=== PATIENT | female | born 1945 | race Caucasian/White ===

== ENCOUNTER 2019-03-10 13:06 | Outpatient (CLI) | payer MEDICARE ==
[2019-03-10 15:11] LABS: #Eosinphils 0.1 thou/uL (0.0-0.7); #Lymphocytes 1.6 thou/uL (1.20-3.40); #Monocytes 0.6 thou/uL (0.11-0.59); #Neutrophils 4.7 thou/uL (1.40-6.50); %Basophils 0.3 % (0.0-1.0); %Eosinophils 0.8 % (0.0-10.0); %Lymphocytes 22.9 % (21.0-51.0); %Monocytes 8.5 % (0.0-10.0); %Neutrophils 67.5 % (42.0-75.0); Hemoglobin 13.4 g/dL (12.0-16.0); Mean Corpuscular HGB CONC 32.2 g/dL (32.0-36.0); Mean Corpuscular Hemoglobin 30.1 pg (27.0-31.0); Mean Corpuscular Volume 93.3 fL (78.0-98.0); Platelet Count 223 thou/uL (130-400); RBC Distribution Width 12.3 % (11.5-14.5); Red Blood Cell (RBC) Count 4.44 mill/uL (4.20-5.40); White Blood Cell (WBC) Count 6.9 thou/uL (4.8-10.8)
[2019-03-10 15:18] LABS: Prothrombin Time 13.4 SEC (12.0-14.7)
[2019-03-10 15:25] LABS: Bilirubin Negative (Negative); Blood, Urine Negative (Negative); Clarity Clear (Clear); Glucose, Urine (Dipstick) Normal (Negative); Leukocyte Negative Leu/uL (Negative); Nitrite Negative (Negative); Protein, Urine (Dipstick) Negative (Neg-Trace); RBC/HPF 0-3 HPF (0-3); Squamous Epithelial 0-3 HPF (0-3); Urobilinogen Normal mg/dL (Less than 2); WBC/HPF 0-3 HPF (0-3)
[2019-03-10 15:27] LABS: Bacteria/HPF 1+ HPF (None Seen)
[2019-03-10 15:31] LABS: Anion Gap 11 mmol/L (10-20); BUN (Urea Nitrogen) 14 mg/dL (9.8-20.1); Calc. Creatinine Clearance 0 mL/min (70-130); Calcium 9.4 mg/dL (7.8-10.44); Carbon Dioxide 24 mmol/L (23-31); Chloride 110 mmol/L (98-107); Estimated GFR-MDRD 82; Glucose 83 mg/dL (83-110); Potassium 3.9 mmol/L (3.5-5.1); Sodium 141 mmol/L (136-145)
--- NOTE | 2019-03-10 17:04 | EKG ---
Test Reason : Blood Pressure : / mmHG Vent. Rate : 050 BPM Atrial Rate : 050 BPM P-R Int : 166 ms QRS Dur : 082 ms QT Int : 426 ms P-R-T Axes : 058 046 054 degrees QTc Int : 388 ms Sinus bradycardia Otherwise normal ECG No previous ECGs available Confirmed by DR. Maggie PENDLETON ([id number]) on 03/10/2019 5:03:45 PM Referred By: IERO Confirmed By:DR. Maggie PENDLETON
== END 2019-03-10 13:07 | disposition home or self-care (01) ==
LOC: LABBT 13:06
PROVIDERS: ATTEND Orthopaedic Surgery
DX: Z01.818 Encounter for other preprocedural examination (principal); M17.12 Unilateral primary osteoarthritis, left knee
CPT/HCPCS: 80048; 81001; 85025; 85610; 87081; 93005; 93010

== ENCOUNTER 2019-03-21 06:49 | Inpatient (IN) | payer MEDICARE ==
[2019-03-10 13:24] VITALS: BMI 28.0
[2019-03-21] MEDS ORDERED: Tranexamic Acid 1,000 MG/10 ML VIAL ONE ×2 (07:38→11:49)
[2019-03-21] MEDS ORDERED: Sodium Chloride 0.9% 100 ML ONE (07:38)
[2019-03-21] MEDS ORDERED: ceFAZolin Sodium (SDC) 2 GM/100 ML BAG ONE (07:38)
[2019-03-21] MEDS ORDERED: Midazolam HCl 2 mg/2 ml Vial ONE (07:59)
[2019-03-21] MEDS ORDERED: Fentanyl 100 MCG/2 ML VIAL ONE ×5 (07:59→12:59)
[2019-03-21] MEDS ORDERED: Bupivacaine PF 0.5% 30 ML VIAL ONE (09:19)
[2019-03-21] MEDS ORDERED: Lidocaine 1% (PF) 30 ML VIAL ONE (09:41)
[2019-03-21] MEDS ORDERED: methylPREDNISolone Acetate 40 mg/ml Vial ONE (09:41)
[2019-03-21] MEDS ORDERED: traMADol HCl 50 MG TAB PO PRN ×2 (09:53)
[2019-03-21] MEDS ORDERED: HYDROcodone/Acetaminophen 10/325 mg Tablet PO PRN ×2 (09:53)
[2019-03-21] MEDS ORDERED: Promethazine HCl 25 MG/ML VIAL IM PRN ×3 (09:53→11:06)
[2019-03-21] MEDS ORDERED: Ropivacaine HCl/PF 250 ML in Premix Bag 1 BAG NERVE BLCK SCH (09:53)
[2019-03-21] MEDS ORDERED: Zolpidem Tartrate 5 MG TAB PO PRN ×3 (09:53→12:35)
[2019-03-21] MEDS ORDERED: Ondansetron PF 4 MG/2 ML Vial IVP PRN ×2 (09:53→11:06)
[2019-03-21] MEDS ORDERED: Ondansetron HCl/PF 4 MG/2 ML Vial IVP PRN (10:20)
[2019-03-21] MEDS ORDERED: Promethazine HCl 25 MG/ML VIAL SLOW IVP PRN (10:20)
[2019-03-21] MEDS ORDERED: Acetaminophen 325 MG TAB PO PRN (11:06)
[2019-03-21] MEDS ORDERED: diphenhydrAMINE 25 MG CAP PO PRN ×2 (11:06→12:35)
[2019-03-21] MEDS ORDERED: Tranexamic Acid 1,000 MG in Sodium Chloride 0.9% 100 ML IVPB SCH (11:15)
--- NOTE | 2019-03-21 11:29 | OP ---
DATE OF PROCEDURE: 03/21/2019 SURGEON: Flaco Ron MD ACCOUNT INFORMATION CLERK: Pio Hurtado PA-C PREOPERATIVE DIAGNOSIS: Bilateral knee arthritis with the left being worse than the right. POSTOPERATIVE DIAGNOSIS: Bilateral knee arthritis with the left being worse than the right. PROCEDURES PERFORMED: 1. Left total knee replacement using [employer] pinless navigation. 2. Right knee corticosteroid injection. ESTIMATED BLOOD LOSS: Minimal. COMPLICATIONS: None. ANESTHESIA: The patient had general anesthetic as well as preoperative block to left leg. IMPLANTS: To the left knee is a [employer] total knee system. The femur was a cruciate retaining size 4 femur, the tibial baseplate was a primary size 4 tibial baseplate. We used a 4 x 9 mm CS X3 tibial bearing and a symmetric 27 x 8 X3 patella. DISPOSITION: She did go to recovery room in stable condition. INDICATIONS: This is a 73-year-old female, who has been having problems with her knees, which have been escalating over the last year. She has failed nonoperative treatment at this time and opted to have surgery. DESCRIPTION OF PROCEDURE: After all appropriate consent forms were explained and signed, she was taken to the operating room, at this time was given general anesthetic. Once the level of anesthesia was appropriate, the right knee was cleaned off with alcohol and 80 mg of Depo-Medrol with local was injected into the right knee without complication. Band-Aid was applied. Once the level of anesthesia was appropriate, a well-padded tourniquet was placed on the left leg , and the leg was then prepped and draped in standard surgical fashion. The limb was exsanguinated and tourniquet taken up to 300 mmHg. Midline incision was made with a 10 blade down through the skin and subcutaneous tissue. Bovie electrocautery was used to coagulate any brisk venous bleeding. A new blade was used to make a medial parapatellar arthrotomy. Small subperiosteal release was performed medially and excess fat pad was removed. The knee was flexed up to gain access to the femur. The femur was navigated and distal femoral resection was made. Epicondylar access was used to align our sizing jig and this was pinned in place. We sized our femur to be a cruciate retaining size 4 femur. 4:1 cutting block was applied and pinned. Anterior and posterior chamfer cuts were then made. We navigated out our proximal tibia and made our proximal tibial resection. Spreaders were used to remove any posterior osteophytes off the back of the femur as well as remaining meniscal tissue. A long alignment millie was then used to achieve correct rotation of our tibial baseplate and a primary size 4 tibial baseplate was chosen. This was pinned in place. We trialed the polyethylene and a 4 x 9 mm CS X3 tibial bearing polyethylene gave us full extension and good stability throughout range of motion. Two towel clips and a saw were used to cut our patella. Three lug nuts were drilled and symmetric 27 x 8 X3 patella was trialed which sat nicely in the trochlear groove. We then drilled our femur and punched our tibia. All components were removed. The knee was thoroughly irrigated and dried. Cement was mixed into the cement gun on the back table. Components were then placed. The knee was held out in full extension until the cement had dried. All excess bone cement was removed. Multiple #2 Vicryl stitches as well as a Quill were used to close our extensor mechanism. 0 Quill followed by a running Monoderm was then used to close the skin. Surgicel glue was then used on the skin. Once this had dried, soft tissue dressing was applied to the limb, tourniquet was let down, and the toes pinked up nicely. The patient was then awakened and taken to the recovery room in stable condition. All counts were correct at the end of the case. The patient did receive preoperative IV antibiotics. The patient was injected with Exparel for postoperative pain relief. Job ID: [id number] [facility]
[2019-03-21] MEDS: Ketorolac Tromethamine 30 MG/ML VIAL IVP SCH ×3 (12:05→23:34)
[2019-03-21] MEDS ORDERED: Naloxone HCl 0.4 mg/ml Vial IV PRN (12:35)
[2019-03-21] MEDS ORDERED: diphenhydrAMINE 50 MG/ML VIAL IM/IV PRN (12:35)
[2019-03-21] MEDS ORDERED: Ropivacaine 0.5% HCl/PF (150 MG/30 ML VIAL) ONE (16:28)
[2019-03-21] MEDS ORDERED: Ropivacaine 0.2% HCl/PF (40 MG/20 ML VIAL) ONE (16:28)
[2019-03-21] MEDS ORDERED: Lidocaine 1% PF 5 ML VIAL ONE (16:57)
[2019-03-21] MEDS ORDERED: Ondansetron PF 4 MG/2 ML Vial ONE (16:57)
[2019-03-21] MEDS ORDERED: ePHEDrine 50 MG/ML VIAL ONE (16:57)
[2019-03-21] MEDS ORDERED: Ketorolac Tromethamine 30 MG/ML VIAL ONE (16:57)
[2019-03-21] MEDS ORDERED: PROPOFOL 200 MG/20 ML VIAL ONE (16:57)
--- NOTE | 2019-03-21 17:47 | PDOC.HOSPP ---
- Subjective Subjective: Patient seen and examined for med mngt. No new complaints. Pain controlled. - Objective Vital Signs & Weight: Vital Signs (12 hours) Temp Pulse Resp BP Pulse Ox 03/21/19 14:04 97.2 F L 55 L 18 107/63 98 Weight Weight 158 lb 3.2 oz I&O: 03/20/19 03/21/19 03/22/19 06:59 06:59 06:59 Intake Total 560 Output Total 275 Balance 285 Result Diagrams: 03/22/19 04:35 Additional Labs: Laboratory Tests 03/10/19 14:20 BUN 14 Creatinine 0.70 EKG Reviewed by me: Yes (SB) ROS - Review of Systems All systems: All other ROS were reviewed and found negative. Respiratory: denies: cough, dry, shortness of breath, hemoptysis, SOB with excertion, pleuritic pain, sputum, wheezing, other Cardiovascular: denies: chest pain, palpitations, orthopnea, paroxysmal noc. dyspnea, edema, light headedness, other Gastrointestinal: denies: nausea, vomitting, abdominal pain, diarrhea, constipation, melena, hematochezia, other - Medication Medications: Active Medications Generic Name Dose Route Start Last Admin Trade Name Freq PRN Reason Stop Dose Admin Ketorolac Tromethamine 15 mg 03/21/19 12:00 03/21/19 12:05 Toradol IVP 03/23/19 06:01 Not Given Q6HR ANTIONETTE - Exam NAD Heart: RRR, no rubs Respiratory: CTAB, no ronchi Gastrointestinal: soft, non-tender, normal bowel sounds Extremities: no edema Hosp A/P (1) Chronic low back pain Code(s): M54.5 - LOW BACK PAIN; G89.29 - OTHER CHRONIC PAIN Status: Chronic (2) CKD (chronic kidney disease) stage 2, GFR 60-89 ml/min Code(s): N18.2 - CHRONIC KIDNEY DISEASE, STAGE 2 (MILD) Status: Chronic (3) DJD (degenerative joint disease) Code(s): M19.90 - UNSPECIFIED OSTEOARTHRITIS, UNSPECIFIED SITE Status: Chronic (4) GERD (gastroesophageal reflux disease) Code(s): K21.9 - GASTRO-ESOPHAGEAL REFLUX DISEASE WITHOUT ESOPHAGITIS Status: Chronic - Plan plan discussed w/ family Cont Doxepin Add PPI and PRN Tums per patient request Pain control per primary service Will follow PRN Full code. DPOA - self/family
[2019-03-21] MEDS ORDERED: CEFAZOLIN 2 GM in Premix Bag 1 BAG IVPB SCH (18:00)
[2019-03-21] MEDS: Sodium Chloride 0.9% 1,000 ML IV SCH ×2 (18:35→23:35)
[2019-03-21] MEDS: Acetaminophen 500 MG TAB PO SCH ×2 (18:46→23:35)
[2019-03-21] MEDS ORDERED: Vancomycin HCl 1 GM in Premix Bag 1 BAG IVPB SCH (20:00)
[2019-03-21] MEDS: CEFAZOLIN 2 GM in Sodium Chloride 0.9% 100 ML IVPB SCH (21:07)
[2019-03-21] MEDS: Doxepin HCl 10 MG CAP PO SCH (21:09)
[2019-03-21] MEDS: Aspirin 81 mg Enteric Coated Tablet PO SCH (21:09)
[2019-03-22] MEDS: CEFAZOLIN 2 GM in Sodium Chloride 0.9% 100 ML IVPB SCH (05:09)
[2019-03-22] MEDS: Acetaminophen 500 MG TAB PO SCH ×4 (05:10→23:49)
[2019-03-22] MEDS: Ketorolac Tromethamine 30 MG/ML VIAL IVP SCH ×5 (05:10→23:51)
[2019-03-22 05:12] LABS: Hemoglobin 11.4 g/dL (12.0-16.0); Mean Corpuscular HGB CONC 33.2 g/dL (32.0-36.0); Mean Corpuscular Hemoglobin 31.6 pg (27.0-31.0); Mean Corpuscular Volume 95.2 fL (78.0-98.0); Mean Platelet Volume 8.1 fL (7.4-10.4); Platelet Count 173 thou/uL (130-400); RBC Distribution Width 12.4 % (11.5-14.5); Red Blood Cell (RBC) Count 3.62 mill/uL (4.20-5.40); White Blood Cell (WBC) Count 15.5 thou/uL (4.8-10.8)
[2019-03-22] MEDS: fentaNYL Citrate/PF 2,000 MCG in Sodium Chloride 0.9% 60 ML IV PRN (08:44)
[2019-03-22] MEDS: Ferrous Gluconate 324 MG TAB PO SCH ×2 (09:06→18:03)
[2019-03-22] MEDS: Senokot S 8.6-50 MG TAB PO SCH ×2 (09:06→20:58)
[2019-03-22] MEDS: Multivitamin W/ Minerals 1 TAB PO SCH (09:06)
[2019-03-22] MEDS: Aspirin 81 mg Enteric Coated Tablet PO SCH ×2 (09:06→20:58)
[2019-03-22] MEDS: Sodium Chloride 0.9% 1,000 ML IV SCH ×2 (10:51→20:44)
--- NOTE | 2019-03-22 12:22 | PRG ---
DATE OF SERVICE: 03/22/2019 SUBJECTIVE: Carla is a 73-year-old female postop day 1 from left total knee arthroplasty. She has done relatively well. Her pain is fairly well controlled. She tells me she would like to have a short swing bed stay due to the fact that she lives alone and she has not really had milestones for independence. OBJECTIVE: VITAL SIGNS: Temperature 99.1, pulse of 62, respiratory rate is 20, and blood pressure is 102/58. NEUROLOGIC: She is alert and oriented to person, place, time, and situation, grossly nonfocal, responsive and appropriate with examiner. EXTREMITIES: Incision is clean and closed. There is no erythema. There is no strike through. She is neurovascularly intact. There is no malrotation or shortening. IMPRESSION: A 73-year-old female, postop day 1, left total knee arthroplasty. PLAN: Continue current care. We will consult for a swing bed placement. Job ID: [id number]
[2019-03-22] MEDS ORDERED: Mag-Al 1200 mg/1200 mg/30 ML UDCUP PO PRN (17:35)
[2019-03-22] MEDS ORDERED: Calcium Carbonate 500 MG ChewTAB PO PRN (17:35)
[2019-03-22] MEDS: Doxepin HCl 10 MG CAP PO SCH (20:58)
[2019-03-23 04:58] LABS: Hemoglobin 11.6 g/dL (12.0-16.0); Mean Corpuscular HGB CONC 33.3 g/dL (32.0-36.0); Mean Corpuscular Hemoglobin 31.6 pg (27.0-31.0); Mean Corpuscular Volume 94.8 fL (78.0-98.0); Mean Platelet Volume 8.4 fL (7.4-10.4); Platelet Count 152 thou/uL (130-400); RBC Distribution Width 12.6 % (11.5-14.5); Red Blood Cell (RBC) Count 3.67 mill/uL (4.20-5.40); White Blood Cell (WBC) Count 9.5 thou/uL (4.8-10.8)
[2019-03-23] MEDS: Sodium Chloride 0.9% 1,000 ML IV SCH ×3 (06:00→23:23)
[2019-03-23] MEDS: Acetaminophen 500 MG TAB PO SCH ×3 (06:00→18:09)
[2019-03-23] MEDS: Ketorolac Tromethamine 30 MG/ML VIAL IVP SCH (06:00)
[2019-03-23] MEDS: Aspirin 81 mg Enteric Coated Tablet PO SCH ×2 (09:12→20:38)
[2019-03-23] MEDS: Ferrous Gluconate 324 MG TAB PO SCH ×2 (09:12→18:09)
[2019-03-23] MEDS: Senokot S 8.6-50 MG TAB PO SCH ×2 (09:13→20:38)
[2019-03-23] MEDS: Multivitamin W/ Minerals 1 TAB PO SCH (09:13)
[2019-03-23] MEDS: fentaNYL Citrate/PF 2,000 MCG in Sodium Chloride 0.9% 60 ML IV PRN (11:55)
[2019-03-23] MEDS: Doxepin HCl 10 MG CAP PO SCH (20:38)
[2019-03-23] MEDS ORDERED: Acetaminophen 325 MG TAB PO PRN (23:59)
[2019-03-24 04:46] LABS: Hemoglobin 10.9 g/dL (12.0-16.0); Mean Corpuscular HGB CONC 33.3 g/dL (32.0-36.0); Mean Corpuscular Hemoglobin 31.5 pg (27.0-31.0); Mean Corpuscular Volume 94.4 fL (78.0-98.0); Mean Platelet Volume 7.9 fL (7.4-10.4); Platelet Count 157 thou/uL (130-400); RBC Distribution Width 12.7 % (11.5-14.5); Red Blood Cell (RBC) Count 3.48 mill/uL (4.20-5.40); White Blood Cell (WBC) Count 8.9 thou/uL (4.8-10.8)
[2019-03-24] MEDS: fentaNYL Citrate/PF 2,000 MCG in Sodium Chloride 0.9% 60 ML IV PRN (05:47)
[2019-03-24] MEDS: Ferrous Gluconate 324 MG TAB PO SCH (08:14)
[2019-03-24] MEDS: Aspirin 81 mg Enteric Coated Tablet PO SCH (08:14)
[2019-03-24] MEDS: Senokot S 8.6-50 MG TAB PO SCH (08:14)
[2019-03-24] MEDS: Multivitamin W/ Minerals 1 TAB PO SCH (08:15)
[2019-03-24] MEDS ORDERED: HYDROcodone/Acetaminophen 10/325 mg Tablet PO PRN (10:15)
[2019-03-24] MEDS: Sodium Chloride 0.9% 1,000 ML IV SCH (12:07)
[2019-03-24 12:31] VITALS: BP 115/72; TEMP 98.2
--- NOTE | 2019-03-24 16:34 | PDOC.HOSPP ---
- Subjective Subjective: Patient seen and examined for med mngt. No fever/chills. No new complaints. No overnight events - Objective Vital Signs & Weight: Vital Signs (12 hours) Temp Pulse Resp BP Pulse Ox 03/24/19 12:00 98.2 F 69 16 115/72 97 03/24/19 08:00 94 L 03/24/19 07:48 98.5 F 77 16 118/72 94 L Weight Admit Weight 158 lb 3.2 oz Weight 158 lb 3.2 oz I&O: 03/23/19 03/24/19 03/25/19 06:59 06:59 06:59 Intake Total 1240 800 Output Total 800 Balance 440 800 Result Diagrams: 03/24/19 04:18 ROS - Review of Systems All systems: All other ROS were reviewed and found negative. Respiratory: denies: cough, dry, shortness of breath, hemoptysis, SOB with excertion, pleuritic pain, sputum, wheezing, other Cardiovascular: denies: chest pain, palpitations, orthopnea, paroxysmal noc. dyspnea, edema, light headedness, other Gastrointestinal: denies: nausea, vomitting, abdominal pain, diarrhea, constipation, melena, hematochezia, other - Exam NAD Heart: RRR, no rubs Respiratory: CTAB, no rales Gastrointestinal: soft, non-tender, normal bowel sounds Extremities: no edema Hosp A/P (1) Chronic low back pain Code(s): M54.5 - LOW BACK PAIN; G89.29 - OTHER CHRONIC PAIN (2) CKD (chronic kidney disease) stage 2, GFR 60-89 ml/min Code(s): N18.2 - CHRONIC KIDNEY DISEASE, STAGE 2 (MILD) (3) DJD (degenerative joint disease) Code(s): M19.90 - UNSPECIFIED OSTEOARTHRITIS, UNSPECIFIED SITE (4) GERD (gastroesophageal reflux disease) Code(s): K21.9 - GASTRO-ESOPHAGEAL REFLUX DISEASE WITHOUT ESOPHAGITIS (5) Chronic anemia Code(s): D64.9 - ANEMIA, UNSPECIFIED - Plan DVT proph w/SCDs Cont Doxepin for low back pain Cont PPI Will follow PRN
== END 2019-03-24 14:14 | DRG 470 ==
LOC: SDC 06:49 → SJJU 11:06
PROVIDERS: ADMIT Orthopaedic Surgery; ATTEND Orthopaedic Surgery
PROC: 0SRD0J9 Replacement of Left Knee Joint with Synthetic Substitute, Cemented, Open Approach (ICD-10-PCS; principal; 2019-03-21)
PROC: 3E0U33Z Introduction of Anti-inflammatory into Joints, Percutaneous Approach (ICD-10-PCS; 2019-03-21)
DX: M17.0 Bilateral primary osteoarthritis of knee (principal); M54.5 Low back pain; G89.29 Other chronic pain; N18.2 Chronic kidney disease, stage 2 (mild); K21.9 Gastro-esophageal reflux disease without esophagitis; J44.9 Chronic obstructive pulmonary disease, unspecified; F17.200 Nicotine dependence, unspecified, uncomplicated; Z88.5 Allergy status to narcotic agent
CPT/HCPCS: 36415; 85027; C1713; C1776; J0131; J0690; J1030; J1885; J2001; J2250; J2405; J2704; J2795; J3010; J3370; J3490; S0020